=== PATIENT | male | born 1990 | race Caucasian/White ===

== ENCOUNTER 2017-07-05 17:22 | Emergency (ER) | payer MEDICAID ==
[~2017-07-05] VITALS: Ht 177.8 cm; Wt 81.6 kg
[2017-07-05 17:45] VITALS: BP_SYST 131
[2017-07-05 19:08] VITALS: BP_SYST 131
== END 2017-07-05 19:08 | disposition home or self-care (01) ==
LOC: SED 17:22
DX: R55 Syncope and collapse (principal)
CPT/HCPCS: 93005; 99283